=== PATIENT | male | born 1980 | race Hispanic/Latino ===

== ENCOUNTER 2020-11-25 10:14 | Outpatient (CLI) | payer OTHER ==
--- NOTE | 2020-11-25 10:58 | XRay Report ---
Left ankle 2 views INDICATION: Pain FINDINGS: There is a fracture/hardware failure within the midportion of the fibular plate. Medial mal leolar screws appear intact. 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 Soft tissue swelling is seen thro ughout the ankle. Left knee 2 views INDICATION: Pain FINDINGS: ACL graft tunnel is noted. There is tricompartmental degenerative change within the knee wi th joint space narrowing throughout. Signer Name: Ector Casey MD Signed: 11/25/2020 10:54 AM Workstation Name: [id number]
== END 2020-11-25 10:15 | disposition home or self-care (01) ==
LOC: XRAY 10:14
PROVIDERS: ATTEND Internal Medicine
DX: Z02.71 Encounter for disability determination (principal); M17.12 Unilateral primary osteoarthritis, left knee; M79.89 Other specified soft tissue disorders; M25.572 Pain in left ankle and joints of left foot